=== PATIENT | male | born 1940 ===

== ENCOUNTER → 2016-07-14 | Day surgery (SDC) | payer OTHER ==
[2016-07-14] VITALS (8 sets, daily range): BP systolic 134–164; BP diastolic 72–78
[~2016-07-14] VITALS: Ht 181.6 cm; Wt 90.7 kg
[~2016-07-14] MED LIST: ALBUTEROL2.5 MG/3 M INH; Akten 3.5% 1ml Btl ONE; BSS 15ml BTL ONE; BSS 500ml btl ONE; Dexamethasone 4mg/ml vial ONE; EPINEPHrine 1mg/1ml Amp ONE; FERROUS SULFAT325 MG ORAL; Gatifloxacin Opth Solution 0.5% ONE; LASIX20 M1 ORAL; LR 1000ml ONE; Lidocaine 1% MPF 10mg/ml 5ml ONE; METOPROLOL TART25 MG ORAL; Midazolam 2mg/2ml Inj ONE; NS Irrig 1000ml ONE; PREDNISONE10 MG ORAL; PROAIR HFA8.5 GM INH; PROSCAR5 MG ORAL; Phenylephrine 2.5% Op Soln ONE; Povidone-Iodine 5% opth solution ONE; SERTRALINE HCL25 MG ORAL; Sodium Hyaluronate 14 mg/ml 0.85ml ONE; Sterile Water Irrig 1000ml IRRIG ONE; TAMSULOSIN HCL0.4 MG ORAL; Tobradex Opth Susp 2.5ml ONE; Tropicamide 1% Opth Soln ONE
--- NOTE | 2016-07-14 07:08 | Pre-Procedure Note/Attestation ---
Pre-Procedure Note/Attestation Complete Prior to Procedure Planned Procedure: right Procedure Narrative: cataract extraction with implant right eye Indications for Procedure Pre-Operative Diagnosis: cataract right eye Attestation I attest that I discussed the nature of the procedure; its benefits; risks and complications; and alternatives (and the risks and benefits of such alternatives ), prior to the procedure, with the patient (or the patient's legal medicare sales representative). I attest that, if there was a reasonable possibility of needing a blood transfusion, the patient (or the patient's legal medicare sales representative) was given the [facility] standardized written summary, pursuant to the [place] Blood Safety Act ([place] Health and Safety Code # 1645, as amended). I attest that I re-evaluated the patient just prior to the surgery and that there has been no change in the patient's H&P, except as documented below: DUKE HANSON Jul 14, 2016 07:08
[2016-07-14] MEDS: Tropicamide 1% Opth Soln RIGHT EYE SCH ×3 (07:37→08:07)
[2016-07-14] MEDS: Gatifloxacin Opth Solution 0.5% RIGHT EYE SCH ×3 (07:37→08:07)
[2016-07-14] MEDS: Akten 3.5% 1ml Btl RIGHT EYE SCH ×3 (07:42→08:07)
[2016-07-14] MEDS: Tobradex Opth Susp 2.5ml RIGHT EYE SCH ×3 (07:43→08:07)
[2016-07-14] MEDS: Phenylephrine 2.5% Op Soln RIGHT EYE SCH ×3 (07:43→08:07)
[2016-07-14 09:23] LABS: ANION GAP 10 (5-15); CALCIUM 9.6 mg/dL (8.6-10.2); CARBON DIOXIDE 34 mEQ/L (20-30); CHLORIDE 99 mEQ/L (98-107); CREATININE 1.3 mg/dL (0.7-1.2); HEMOLYSIS 4; POTASSIUM 3.7 mEQ/L (3.4-4.9); SODIUM 143 mEQ/L (135-145)
--- NOTE | 2016-07-14 10:19 | Anethesia Preoperative Eval ---
Anesthesia Pre-op PMH/ROS General Date of Evaluation: Jul 14, 2016 Time of Evaluation: 10:00 Anesthesiologist: Shantanu ASA Score: ASA 3 Mallampati Score Class I : Soft palate, uvula, fauces, pillars visible Class II: Soft palate, uvula, fauces visible Class III: Soft palate, base of uvula visible Class IV: Only hard plate visible Mallampati Classification: Class III Surgeon: Nadeem Diagnosis: cataract right eye Surgical Procedure: cataract extraction right eye Anesthesia History: none Family History: no anesthesia problems Allergies: Coded Allergies: ASPIRIN (Verified Allergy, Severe, "BREAKS OUT; ITCHING", 07/13/16) CODEINE (Verified Allergy, Severe, "CANT BREATH", 07/13/16) Medications: see eMAR Past Medical History Cardiovascular: Reports: HTN Pulmonary: Reports: COPD Gastrointestinal/Genitourinary: Denies: CRI, ESRD, GERD, other Neurologic/Psychiatric: Denies: CVA, TIA, dementia, depression/anxiety, other Endocrine: Denies: DM, hypothyroidism, other, steroids HEENT: Reports: cataract (R) Hematology/Immune: Denies: DVT, anemia, bleeding disorder, other Musculoskeletal/Integumentary: Reports: OA PMH Narrative: HTN, COPD, BPH, OA PSxH Narrative: denies Anesthesia Pre-op Phys. Exam Physician Exam Last Vital Signs Date Time Temp Pulse Resp B/P Pulse Ox O2 Delivery O2 Flow Rate FiO2 07/14/16 07:47 97.8 63 18 134/73 95 Room Air Constitutional: NAD Neurologic: CN 2-12 intact Cardiovascular: RRR Respiratory: CTA Gastrointestinal: S/NT/ND Airway Exam Mallampati Score: Class III MO: limited ROM: full Teeth: intact Dentures: no lower, no upper Anesthesia Pre-op A/P Labs Chemistry Test 07/14/16 08:30 Sodium Level 143 mEQ/L (135-145) Potassium Level 3.7 mEQ/L (3.4-4.9) Chloride Level 99 mEQ/L (98-107) Carbon Dioxide Level 34 mEQ/L (20-30) H Anion Gap 10 (5-15) Blood Urea Nitrogen 24 mg/dL (7-23) H Creatinine 1.3 mg/dL (0.7-1.2) H Estimat Glomerular Filtration Rate mL/min (>60) Glucose Level 97 mg/dL (74-106) Calcium Level 9.6 mg/dL (8.6-10.2) EMMETT DODGE D.O. Jul 14, 2016 10:19
--- NOTE | 2016-07-14 10:22 | Immediate Post-Op Evaluation ---
Immediate Post-Op Evalulation Immediate Post-Op Evalulation Procedure: cataract extraction right eye with iol placement Date of Evaluation: Jul 14, 2016 Time of Evaluation: 10:30 IV Fluids: 300ml Blood Products: none Estimated Blood Loss: none Urinary Output: due to void Blood Pressure Systolic: 157 Blood Pressure Diastolic: 78 Pulse Rate: 69 Respiratory Rate: 16 O2 Sat by Pulse Oximetry: 100 Temperature (Fahrenheit): 98 Pain Score (1-10): 0 Nausea: No Vomiting: No Complications none Patient Status: awake, reacts Hydration Status: adequate Drug: n/a Given Within 1 Hr of Incision: EMMETT Schultz D.O. Jul 14, 2016 10:22
--- NOTE | 2016-07-14 10:39 | Brief Operative Note ---
Immediate Post Operative Note Operative Note Pre-op Diagnosis: cataract right eye Procedure: phacoemulsification of cataract with implant right eye Post-op Diagnosis: same as pre-op Surgeon: melissa chapin Sales Representative Sales Manager: none Anesthesiologist: iván carr Anesthesia: MAC Specimen: none Complications: none Condition: stable Estimated Blood Loss: none Drains: none Implant(s) used?: Yes MELISSA CHAPIN Jul 14, 2016 10:39
--- NOTE | 2016-07-14 10:40 | 48 Hour Post Anesthesia Eval ---
Post Anesthesia Evaluation Procedure: cataract extraction right eye with iol placement Date of Evaluation: Jul 14, 2016 Time of Evaluation: 10:39 Blood Pressure Systolic: 164 0: 78 Pulse Rate: 77 Respiratory Rate: 16 Temperature (Fahrenheit): 98 O2 Sat by Pulse Oximetry: 96 Airway: patent Nausea: No Vomiting: No Pain Intensity: 2 Hydration Status: adequate Cardiopulmonary Status: stable Mental Status/LOC: patient returned to baseline Follow-up Care/Observations: as per surgeon Post-Anesthesia Complications: none Follow-up care needed: N/A EMMETT DODGE D.O. Jul 14, 2016 10:40
--- NOTE | 2016-07-14 12:59 | Operative Note - Dictated ---
DATE OF OPERATION: 07/14/2016 PREOPERATIVE DIAGNOSIS: Cataract, right eye. POSTOPERATIVE DIAGNOSIS: Cataract, right eye. PROCEDURE: Phacoemulsification of cataract, right eye with placement of posterior chamber intraocular lens. SURGEON: Yonatan Silver M.D. CHEMIC MANGLER: None. ANESTHESIA: MAC/topical. ANESTHESIOLOGIST: Dr. Eulogio Fournier INDICATION FOR PROCEDURE: Count fingers vision, right eye. 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 DESCRIPTION OF PROCEDURE: The patient received a topical anesthetic block consisting of 3.5% Akten eye drops. The eye was prepped and draped in usual manner. A lid speculum was placed. An operating Zeiss microscope was positioned. The temporal corneal groove was made with a tolu blade. A SuperSharp blade and a stab incision at the 12 o'clock position. A 0.1 mL of 1% nonpreserved intracameral lidocaine was injected. Healon was instilled into the anterior chamber and a 2.5/2.8 mm trapezoidal tolu blade was used to complete the temporal corneal wound. A cystotome was used to create an anterior capsular flap. Utrata forceps were used to complete the capsulorrhexis. BSS on a cannula was used to hydrodissect the nucleus. The lens nucleus was phacoemulsified in a phaco-fracture technique. Remaining cortical material with the I/A and the posterior capsule polished with the I/A on Cap vac. Healon was instilled in a capsular bag and anterior chamber, and an Triplett foldable one-piece posterior chamber intraocular lens model ZCB00, power 22.5 diopter, serial #[id number] was placed in the injector. The lens put in the capsular bag. The I/A tip was used to remove the Healon and positioned the lens. The wound edge was hydrated with BSS and a blunt-tipped cannula. The wound was checked and found to be watertight. The lid speculum was removed and a drop of TobraDex and Zymaxid was placed. A clear plastic shield was taped over the eye. The patient tolerated the procedure well and left the operating room in good condition. Yonatan Silver M.D. ([facility]) DR: FABIOLA JOB#: [id number] CC: MTDD
--- NOTE | 2016-07-19 10:50 | Cardiology Report ---
APPROVED REPORT EKG Measurement Heart [id number] Sinus bradycardia with 1st degree AV block Otherwise normal ECG
== END | disposition home or self-care (01) ==
LOC: SUR 07:10
DX: H25.11 Age-related nuclear cataract, right eye (principal); H25.041 Posterior subcapsular polar age-related cataract, right eye; H21.81 Floppy iris syndrome; I12.9 Hypertensive chronic kidney disease with stage 1 through stage 4 chronic kidney disease, or unspecified chronic kidney disease; N18.9 Chronic kidney disease, unspecified; J44.9 Chronic obstructive pulmonary disease, unspecified; N40.0 Benign prostatic hyperplasia without lower urinary tract symptoms; M19.90 Unspecified osteoarthritis, unspecified site; R00.1 Bradycardia, unspecified; I44.0 Atrioventricular block, first degree; F12.90 Cannabis use, unspecified, uncomplicated; Z87.891 Personal history of nicotine dependence; Z88.6 Allergy status to analgesic agent; Z88.5 Allergy status to narcotic agent
CPT/HCPCS: 36415; 66984; 80048; 93005; J0171; J1100; J2250; J7120; V2632; 94003; 94150

== ENCOUNTER → 2016-09-01 | Day surgery (SDC) | payer OTHER ==
[2016-09-01] VITALS (10 sets, daily range): BP systolic 121–144; BP diastolic 59–74
[~2016-09-01] VITALS: Ht 180.3 cm; Wt 90.7 kg
[~2016-09-01] MED LIST changes: +Carbachol 0.01% Op Soln 1.5ml vial ONE; +LR 1000ml 1,000 ML IVLG SCH
[2016-09-01] MEDS: Phenylephrine 2.5% Op Soln LEFT EYE SCH ×3 (06:37→06:57)
[2016-09-01] MEDS: Tropicamide 1% Opth Soln LEFT EYE SCH ×3 (06:37→06:57)
[2016-09-01] MEDS: Akten 3.5% 1ml Btl LEFT EYE SCH ×3 (06:37→06:57)
[2016-09-01] MEDS: Gatifloxacin Opth Solution 0.5% LEFT EYE SCH ×3 (06:38→06:57)
[2016-09-01] MEDS: Tobradex Opth Susp 2.5ml LEFT EYE SCH ×3 (06:38→06:57)
--- NOTE | 2016-09-01 07:01 | Pre-Procedure Note/Attestation ---
Pre-Procedure Note/Attestation Complete Prior to Procedure Planned Procedure: left Procedure Narrative: cataract extraction with implant left eye Indications for Procedure Pre-Operative Diagnosis: cataract left eye Attestation I attest that I discussed the nature of the procedure; its benefits; risks and complications; and alternatives (and the risks and benefits of such alternatives ), prior to the procedure, with the patient (or the patient's legal call center representative). I attest that, if there was a reasonable possibility of needing a blood transfusion, the patient (or the patient's legal call center representative) was given the [facility] standardized written summary, pursuant to the [place] Blood Safety Act ([place] Health and Safety Code # 1645, as amended). I attest that I re-evaluated the patient just prior to the surgery and that there has been no change in the patient's H&P, except as documented below: DUKE HANSON Sep 01, 2016 07:00
--- NOTE | 2016-09-01 07:20 | Anethesia Preoperative Eval ---
Anesthesia Pre-op PMH/ROS General Date of Evaluation: Sep 01, 2016 Time of Evaluation: 07:00 Anesthesiologist: Josesito ASA Score: ASA 3 Mallampati Score Class I : Soft palate, uvula, fauces, pillars visible Class II: Soft palate, uvula, fauces visible Class III: Soft palate, base of uvula visible Class IV: Only hard plate visible Mallampati Classification: Class III Surgeon: Nadeem Diagnosis: left eye cataract Surgical Procedure: left eye cataract extraction with IOL placement Anesthesia History: none Family History: no anesthesia problems Allergies: Coded Allergies: ASPIRIN (Verified Allergy, Severe, "BREAKS OUT; ITCHING", 07/13/16) CODEINE (Verified Allergy, Severe, "CANT BREATH", 07/13/16) Medications: see eMAR Past Medical History Cardiovascular: Reports: HTN Pulmonary: Reports: COPD, JUDY Gastrointestinal/Genitourinary: Denies: CRI, ESRD, GERD, other Neurologic/Psychiatric: Denies: CVA, TIA, dementia, depression/anxiety, other Endocrine: Reports: steroids HEENT: Reports: cataract (L) Hematology/Immune: Denies: DVT, anemia, bleeding disorder, other PMH Narrative: HTN, BPH, JUDY, COPD PSxH Narrative: right cataract Anesthesia Pre-op Phys. Exam Physician Exam Last Vital Signs Date Time Temp Pulse Resp B/P Pulse Ox O2 Delivery O2 Flow Rate FiO2 09/01/16 06:59 97.8 52 20 121/63 95 Room Air Constitutional: NAD Neurologic: CN 2-12 intact Cardiovascular: RRR Respiratory: CTA Gastrointestinal: S/NT/ND Airway Exam Mallampati Score: Class II MO: full ROM: limited Teeth: intact Dentures: no lower, no upper EMMETT DODGE D.O. Sep 01, 2016 07:20
--- NOTE | 2016-09-01 07:37 | Immediate Post-Op Evaluation ---
Immediate Post-Op Evalulation Immediate Post-Op Evalulation Procedure: left eye cataract extraction with IOL placement Date of Evaluation: Sep 01, 2016 Time of Evaluation: 07:36 IV Fluids: 100ml Blood Products: none Estimated Blood Loss: none Urinary Output: due to void Blood Pressure Systolic: 133 Blood Pressure Diastolic: 68 Pulse Rate: 50 Respiratory Rate: 16 O2 Sat by Pulse Oximetry: 99 Temperature (Fahrenheit): 97 Pain Score (1-10): 0 Nausea: No Vomiting: No Complications NONE Patient Status: awake, reacts Hydration Status: adequate Drug: n/a Given Within 1 Hr of Incision: EMMETT Schultz D.O. Sep 01, 2016 07:37
--- NOTE | 2016-09-01 07:41 | Brief Operative Note ---
Immediate Post Operative Note Operative Note Pre-op Diagnosis: cataract left eye Procedure: phacoemulsification of cataract with implant left eye Post-op Diagnosis: same as pre-op Surgeon: melissa chapin Photo Tube Assembler: none Anesthesiologist: iván carr Anesthesia: MAC Specimen: none Complications: none Condition: stable Estimated Blood Loss: none Drains: none Implant(s) used?: Yes MELISSA CHAPIN Sep 01, 2016 07:41
--- NOTE | 2016-09-01 07:44 | 48 Hour Post Anesthesia Eval ---
Post Anesthesia Evaluation Procedure: left eye cataract extraction with IOL placement Date of Evaluation: Sep 01, 2016 Time of Evaluation: 07:45 Blood Pressure Systolic: 141 0: 63 Pulse Rate: 50 Respiratory Rate: 16 Temperature (Fahrenheit): 97 O2 Sat by Pulse Oximetry: 98 Airway: patent Nausea: No Vomiting: No Pain Intensity: 0 Hydration Status: adequate Cardiopulmonary Status: stable Mental Status/LOC: patient returned to baseline Follow-up Care/Observations: as per surgeon Post-Anesthesia Complications: none Follow-up care needed: N/A EMMETT DODGE D.O. Sep 01, 2016 07:44
--- NOTE | 2016-09-01 11:07 | Operative Note - Dictated ---
DATE OF OPERATION: 09/01/2016 PREOPERATIVE DIAGNOSIS: Cataract, left eye. POSTOPERATIVE DIAGNOSIS: Cataract, left eye. PROCEDURE: Phacoemulsification of cataract, left eye, with placement of posterior intraocular lens. SURGEON[place] Yonatan Silver [place] [place] INDUSTRIAL/ORGANIZATIONAL PSYCHOLOGIST: None. ANESTHESIA: MAC/topical. ANESTHESIOLOGIST: Dr. Eulogio Fournier. INDICATION FOR PROCEDURE: Poor vision left eye. DESCRIPTION OF FINDINGS: Nuclear sclerotic and posterior subcapsular cataract, left eye with small pupil and floppy iris syndrome. DESCRIPTION OF PROCEDURE: The patient received a topical anesthetic block consisting of 3.5% Akten eye drops. The eye was then prepped and draped in the usual manner. A lid speculum was placed. An operating Zeiss microscope was positioned. A temporal corneal groove was made with a tolu blade. A SuperSharp blade made a stab incision at the 6 o'clock position. A 0.1 mL of 1% nonpreserved intracameral lidocaine was injected. Healon was instilled into the anterior chamber. A 2.5/2.8 mm trapezoidal tolu blade was used to complete the temporal corneal wound. A Malyugin ring was inserted to expand the pupil. A cystotome was used to create the anterior capsular flap. Utrata forceps were used to complete the capsulorrhexis. BSS on a cannula was used to hydrodissect the nucleus. The lens nucleus phacoemulsified in a phaco-fracture technique. Remaining cortical material was removed with the I/A and the posterior capsule was polished with the I/A on Cap vac. Healon was reinstilled into the capsular bag and anterior chamber, and an Triplett foldable one-piece posterior intraocular lens,, model ZCB00, power 21.5 diopter, serial #[id number] was placed in the injector. The lens was put in the capsular bag. The Malyugin ring was then removed from the anterior chamber. The I/A tip was used to remove the Healon and position the lens. The wound edge was hydrated with BSS and a blunt-tipped cannula. The wound was checked and found to be watertight. The lid speculum was removed and a drop of TobraDex and Zymaxid was placed. A clear plastic shield was taped over the eye. The patient tolerated well and left the operating in good condition condition. Yonatan Silver M.D. ([facility]) DR: Ryan JOB#: [id number] CC:
== END | disposition home or self-care (01) ==
LOC: SUR 06:02
DX: H25.12 Age-related nuclear cataract, left eye (principal); H25.042 Posterior subcapsular polar age-related cataract, left eye; H21.81 Floppy iris syndrome; I12.9 Hypertensive chronic kidney disease with stage 1 through stage 4 chronic kidney disease, or unspecified chronic kidney disease; N18.9 Chronic kidney disease, unspecified; N40.1 Benign prostatic hyperplasia with lower urinary tract symptoms; R33.8 Other retention of urine; J44.9 Chronic obstructive pulmonary disease, unspecified; G47.33 Obstructive sleep apnea (adult) (pediatric); D64.9 Anemia, unspecified; R60.9 Edema, unspecified; E55.9 Vitamin D deficiency, unspecified; F12.90 Cannabis use, unspecified, uncomplicated; Z87.891 Personal history of nicotine dependence; Z88.6 Allergy status to analgesic agent; Z88.5 Allergy status to narcotic agent
CPT/HCPCS: 66984; J0171; J1100; J2250; J7120; V2632; 94003; 94150